=== PATIENT | male | born 1975 | race Caucasian/White ===

== ENCOUNTER 2020-07-18 10:05 | Inpatient (IN) ==
[2020-07-18] MEDS ORDERED: *HR* Heparin 5,000 UNIT/ML VIAL IVP ONE (10:29)
[2020-07-18] MEDS ORDERED: *HR* Heparin 5,000 UNIT/ML VIAL IVP PRN ×4 (10:29→17:34)
[2020-07-18] MEDS ORDERED: Heparin 25,000UNIT/250ML 1/2NS 25,000 UNIT/250 ML IV.SOLN IVC SCH ×2 (10:30→17:34)
[2020-07-18] MEDS ORDERED: Isovue-370 500 ML BOTTLE IVP ONE (10:35)
[2020-07-18 11:03] LABS: Basophils # 0.1 K/mcL (0.0-0.2); Basophils % 0.4 %; Eosinophils # 0.1 K/mcL (0.0-0.6); Eosinophils % 0.8 %; Hematocrit 47.6 % (37.5-50.1); INR 0.9; Immature Granulocytes % 0.4 % (0-4); Lymphocytes # 2.3 K/mcL (0.6-4.6); Lymphocytes % 18.9 %; Mean Corpuscular HGB Conc 33.6 g/dL (31.6-35.5); Mean Corpuscular Hemoglobin 30.4 pg (28.0-33.3); Mean Corpuscular Volume 90.3 fL (83.0-100.0); Mean Platelet Volume 11.1 fL (9.4-12.4); Monocytes # 0.8 K/mcL (0.0-1.3); Monocytes % 6.8 %; Neutrophils # 8.8 K/mcL (1.6-8.9); Platelet Count 226 K/mcL (140-400); Prothrombin Time 10.4 Seconds (9.4-12.1); Red Blood Count 5.27 M/mcL (4.19-5.50); Segmented Neutrophils % 72.7 %; White Blood Count 12.1 K/mcL (4.3-11.1)
[2020-07-18 11:06] LABS: Activated Partial Thrombo Time 25.6 Seconds (26.0-36.0); Heparin anti-factor XA UFH < 0.04 IU/mL (0.30-0.70)
[2020-07-18 11:17] LABS: BUN/Creatinine Ratio 17 (6-26); Blood Urea Nitrogen 15 mg/dL (6-20); Calcium 9.1 mg/dL (8.6-10.3); Carbon Dioxide 21 mEq/L (23-29); Chloride 112 mEq/L (98-107); Glucose 98 mg/dL (70-105); Osmolality,Calculated 289 (280-300); Potassium 4.3 mEq/L (3.5-5.1); Sodium 139 mEq/L (136-145); Troponin I < 0.03 ng/mL (< 0.04); eGFR For African Americans > 60 (> 60); eGFR For Non-African Americans > 60 (> 60)
[2020-07-18] MEDS ORDERED: Lidocaine 1% 20 ML MDV ONE (13:45)
[2020-07-18] MEDS ORDERED: Vancomycin 1,000 MG VIAL ONE (13:45)
[2020-07-18] MEDS ORDERED: Lidocaine 1% 0 ML ONE (13:45)
[2020-07-18] MEDS ORDERED: Heparin 1,000 UNITS/500 mL 500 ML ONE (13:45)
[2020-07-18 13:51] LABS: Adenovirus Not Detected (Not Detect); Coronavirus 229E Not Detected (Not Detect); Coronavirus HKU1 Not Detected (Not Detect); Coronavirus NL63 Not Detected (Not Detect); Coronavirus OC43 Not Detected (Not Detect)
[2020-07-18 13:52] LABS: Bordetella Pertussis Not Detected (Not Detect); Chlamydophila pneumoniae Not Detected (Not Detect); Human Metapneumovirus Not Detected (Not Detect); Human Rhinovirus/Enterovirus Not Detected (Not Detect); Influenza A Subtype 2009 H1 Not Detected (Not Detect); Influenza B Not Detected (Not Detect); Mycoplasma pneumoniae Not Detected (Not Detect); Parainfluenza Virus 1 Not Detected (Not Detect); Parainfluenza Virus 2 Not Detected (Not Detect); Parainfluenza Virus 3 Not Detected (Not Detect); Parainfluenza Virus 4 Not Detected (Not Detect); Respiratory Syncytial Virus Not Detected (Not Detect); SARS-CoV-2 Not Detected (Not Detect)
[2020-07-18] MEDS ORDERED: *HR* Succinylcholine 200 MG/10 ML VIAL IVP ONE (13:53)
[2020-07-18] MEDS ORDERED: Ondansetron 4 MG/2 ML VIAL ONE (13:53)
[2020-07-18] MEDS ORDERED: Lidocaine -MPF 2% 2 ML VIAL ONE (13:53)
[2020-07-18] MEDS ORDERED: Lidocaine HCL 4 ML Topical Solution (Laryng-O-Jet Kit Sterile Pak) TP ONE (13:53)
[2020-07-18] MEDS ORDERED: *HR* Rocuronium Bromide 50 MG/5 ML VIAL ONE ×2 (13:53→14:59)
[2020-07-18] MEDS ORDERED: *HR* FentaNYL (PF) 100 MCG/2 ML VIAL ONE (13:53)
[2020-07-18] MEDS ORDERED: Dexamethasone 4 MG/ML VIAL ONE (13:53)
[2020-07-18] MEDS ORDERED: *HR* Propofol 200 MG/20 ML VIAL IVP ONE (13:54)
[2020-07-18] MEDS ORDERED: *HR* Heparin 5,000 UNIT/ML VIAL ONE (14:07)
[2020-07-18] MEDS ORDERED: *HR* OxyCODONE Immed Rel 5 MG TABLET PO PRN ×3 (14:15→17:34)
[2020-07-18] MEDS ORDERED: Ondansetron 4 MG/2 ML VIAL IVP ONE (14:15)
[2020-07-18] MEDS ORDERED: *HR* HYDROmorphone PF 0.5 MG/0.5 ML SYRINGE IVP PRN (14:15)
[2020-07-18] MEDS ORDERED: *HR* HYDROMORPHONE 2 MG/ML VIAL ONE (15:02)
[2020-07-18] MEDS ORDERED: ceFAZolin 2,000 MG in Water for inj. (sterile) 20 ML IVP ONE (15:10)
[2020-07-18] MEDS ORDERED: *HR* Labetalol 20 MG/4 ML SYRINGE IVP ONE (16:33)
[2020-07-18] MEDS: *HR* Labetalol 20 MG/4 ML SYRINGE IVP PRN ×2 (16:36→16:48)
[2020-07-18] MEDS ORDERED: *HR* HYDROcodone/Acet 5/325 mg TABLET PO PRN ×2 (17:34)
[2020-07-18] MEDS ORDERED: Ondansetron 4 MG/2 ML VIAL IVP PRN (17:34)
[2020-07-18] MEDS ORDERED: Acetaminophen 325 MG TABLET PO PRN ×2 (17:34)
[2020-07-18] MEDS ORDERED: Perflutren Lipid Microsphere 1.3 ML in 0.9 % Sodium Chloride 8.7 ML IVP PRN (17:34)
[2020-07-18] MEDS ORDERED: Naloxone 0.4 MG/ML INJ IVP PRN (17:34)
[2020-07-18] MEDS ORDERED: 0.9 % Sodium Chloride 1,000 ML IVC SCH (17:34)
[2020-07-18] MEDS ORDERED: *HR* Labetalol 20 MG/4 ML SYRINGE IVP PRN (17:34)
[2020-07-18] MEDS ORDERED: *HR* Heparin 5,000 UNIT/ML VIAL SQ SCH ×2 (18:00)
[2020-07-18] MEDS: *HR* Metoprolol 5 MG/5 ML VIAL IVP SCH (18:07)
[2020-07-18] MEDS: CeFAZolin 2 GM/120 ML BAG IVPB SCH (21:45)
[2020-07-19] MEDS: *HR* Metoprolol 5 MG/5 ML VIAL IVP SCH ×4 (00:23→14:42)
[2020-07-19 01:38] LABS: Basophils % 0.1 %; Hematocrit 43.4 % (37.5-50.1); Hemoglobin 14.6 g/dL (12.9-16.9); Immature Granulocytes % 0.4 % (0-4); Lymphocytes # 1.1 K/mcL (0.6-4.6); Mean Corpuscular HGB Conc 33.6 g/dL (31.6-35.5); Mean Corpuscular Hemoglobin 30.4 pg (28.0-33.3); Mean Corpuscular Volume 90.2 fL (83.0-100.0); Mean Platelet Volume 11.6 fL (9.4-12.4); Monocytes # 0.8 K/mcL (0.0-1.3); Neutrophils # 13.8 K/mcL (1.6-8.9); Platelet Count 211 K/mcL (140-400); Red Blood Count 4.81 M/mcL (4.19-5.50); Segmented Neutrophils % 87.5 %; White Blood Count 15.8 K/mcL (4.3-11.1)
[2020-07-19 01:56] LABS: BUN/Creatinine Ratio 16 (6-26); Blood Urea Nitrogen 13 mg/dL (6-20); Calcium 8.6 mg/dL (8.6-10.3); Carbon Dioxide 21 mEq/L (23-29); Chloride 110 mEq/L (98-107); Glucose 141 mg/dL (70-105); Osmolality,Calculated 284 (280-300); Potassium 4.3 mEq/L (3.5-5.1); Sodium 136 mEq/L (136-145); eGFR For African Americans > 60 (> 60); eGFR For Non-African Americans > 60 (> 60)
[2020-07-19] MEDS: CeFAZolin 2 GM/120 ML BAG IVPB SCH (06:11)
[2020-07-19] MEDS ORDERED: Aspirin Enteric Coated 81 MG Tablet PO SCH (09:00)
[2020-07-19 12:10] VITALS: BP 180/93
== END 2020-07-19 15:13 | disposition home or self-care (01) | DRG 252 ==
LOC: EMEROOARM 10:05 → 2NNU 10:05
PROVIDERS: ADMIT Surgery; ATTEND Surgery

== ENCOUNTER 2020-07-20 00:25 | Inpatient (IN) ==
[2020-07-20] MEDS ORDERED: *HR* FentaNYL (PF) 100 MCG/2 ML VIAL IVP ONE (00:32)
[2020-07-20] MEDS ORDERED: Isovue-370 500 ML BOTTLE IVP ONE ×2 (00:33→11:43)
[2020-07-20 01:38] LABS: Basophils # 0.1 K/mcL (0.0-0.2); Basophils % 0.4 %; Eosinophils # 0.1 K/mcL (0.0-0.6); Eosinophils % 0.4 %; Hematocrit 44.4 % (37.5-50.1); Hemoglobin 14.5 g/dL (12.9-16.9); Immature Granulocytes % 0.4 % (0-4); Lymphocytes # 3.3 K/mcL (0.6-4.6); Lymphocytes % 23.4 %; Mean Corpuscular HGB Conc 32.7 g/dL (31.6-35.5); Mean Corpuscular Volume 91.9 fL (83.0-100.0); Mean Platelet Volume 11.5 fL (9.4-12.4); Monocytes # 1.1 K/mcL (0.0-1.3); Monocytes % 7.4 %; Neutrophils # 9.6 K/mcL (1.6-8.9); Platelet Count 207 K/mcL (140-400); Red Blood Count 4.83 M/mcL (4.19-5.50); Red Cell Distribution Width 13.1 % (11.5-14.5); White Blood Count 14.2 K/mcL (4.3-11.1)
[2020-07-20] MEDS ORDERED: *HR* Heparin 5,000 UNIT/ML VIAL IVP PRN ×4 (01:40→06:29)
[2020-07-20] MEDS ORDERED: *HR* Heparin 5,000 UNIT/ML VIAL IVP ONE (01:40)
[2020-07-20] MEDS ORDERED: Morphine Sulfate 2 MG/ML SYRINGE IVP STA (01:43)
[2020-07-20] MEDS ORDERED: Heparin 25,000UNIT/250ML 1/2NS 25,000 UNIT/250 ML IV.SOLN IVC SCH ×2 (01:45→06:29)
[2020-07-20 01:48] LABS: BUN/Creatinine Ratio 24 (6-26); Blood Urea Nitrogen 20 mg/dL (6-20); Calcium 8.5 mg/dL (8.6-10.3); Carbon Dioxide 22 mEq/L (23-29); Chloride 111 mEq/L (98-107); Glucose 137 mg/dL (70-105); INR 0.9; Osmolality,Calculated 299 (280-300); Potassium 3.7 mEq/L (3.5-5.1); Prothrombin Time 10.2 Seconds (9.4-12.1); Sodium 142 mEq/L (136-145); eGFR For African Americans > 60 (> 60); eGFR For Non-African Americans > 60 (> 60)
[2020-07-20 01:51] LABS: Activated Partial Thrombo Time 24.5 Seconds (26.0-36.0)
[2020-07-20 02:10] LABS: Hemoglobin 14.5 g/dL (12.9-16.9); Mean Corpuscular Hemoglobin 30.3 pg (28.0-33.3); Mean Corpuscular Volume 91.9 fL (83.0-100.0); Mean Platelet Volume 11.1 fL (9.4-12.4); Platelet Count 188 K/mcL (140-400); Red Blood Count 4.79 M/mcL (4.19-5.50); White Blood Count 14.7 K/mcL (4.3-11.1)
[2020-07-20 02:21] LABS: Heparin anti-factor XA UFH < 0.04 IU/mL (0.30-0.70); INR 0.9; Prothrombin Time 10.3 Seconds (9.4-12.1)
[2020-07-20] MEDS ORDERED: 0.9 % Sodium Chloride 1,000 ML ONE (02:48)
[2020-07-20] MEDS ORDERED: Lidocaine -MPF 2% 2 ML VIAL ONE (03:13)
[2020-07-20] MEDS ORDERED: Dexamethasone 4 MG/ML VIAL ONE (03:13)
[2020-07-20] MEDS ORDERED: *HR* Rocuronium Bromide 50 MG/5 ML VIAL ONE (03:13)
[2020-07-20] MEDS ORDERED: Ondansetron 4 MG/2 ML VIAL ONE (03:13)
[2020-07-20] MEDS ORDERED: *HR* Propofol 200 MG/20 ML VIAL IVP ONE (03:14)
[2020-07-20] MEDS ORDERED: *HR* FentaNYL (PF) 100 MCG/2 ML VIAL ONE (03:14)
[2020-07-20] MEDS ORDERED: ceFAZolin 2,000 MG in Water for inj. (sterile) 20 ML IVP ONE (03:26)
[2020-07-20] MEDS ORDERED: Heparin 1,000 UNITS/500 mL 500 ML ONE (03:31)
[2020-07-20] MEDS ORDERED: Vancomycin 1,000 MG VIAL ONE (03:31)
[2020-07-20] MEDS ORDERED: Acetaminophen IV 1,000 MG/100 ML INFUS..BTL ONE (03:34)
[2020-07-20] MEDS ORDERED: *HR* HYDROMORPHONE 2 MG/ML VIAL ONE (04:27)
[2020-07-20] MEDS ORDERED: *HR* Heparin 5,000 UNIT/ML VIAL ONE ×2 (04:43→04:44)
[2020-07-20] MEDS ORDERED: Ringers Solution, Lactated 1,000 ML ONE (05:50)
[2020-07-20] MEDS ORDERED: *HR* Labetalol 20 MG/4 ML SYRINGE IVP PRN ×2 (05:54→06:29)
[2020-07-20] MEDS ORDERED: *HR* HYDROmorphone (PF) 1 MG/ML SYRINGE IVP PRN (05:54)
[2020-07-20] MEDS ORDERED: Ondansetron 4 MG/2 ML VIAL IVP PRN ×2 (05:54→06:29)
[2020-07-20] MEDS ORDERED: *HR* OxyCODONE Immed Rel 5 MG TABLET PO PRN (06:29)
[2020-07-20] MEDS ORDERED: Acetaminophen 325 MG TABLET PO PRN (06:29)
[2020-07-20] MEDS ORDERED: 0.9 % Sodium Chloride 1,000 ML IVC SCH (06:29)
[2020-07-20] MEDS ORDERED: Naloxone 0.4 MG/ML INJ IVP PRN (06:29)
[2020-07-20] MEDS ORDERED: *HR* HYDROcodone/Acet 5/325 mg TABLET PO PRN (06:29)
[2020-07-20] MEDS: *HR* Metoprolol 5 MG/5 ML VIAL IVP SCH ×3 (08:16→21:08)
[2020-07-20] MEDS ORDERED: Aspirin Enteric Coated 81 MG Tablet PO SCH (09:00)
[2020-07-20] MEDS: CeFAZolin 2 GM/120 ML BAG IVPB SCH ×2 (11:21→18:29)
[2020-07-20] MEDS ORDERED: Nicotine 21 MG PATCH.TD24 TD SCH (12:15)
[2020-07-20 20:49] VITALS: BP 155/102
== END 2020-07-20 21:10 | disposition short-term general hospital (02) | DRG 252 ==
LOC: EMEROOARM 00:25 → ICNU 00:25
PROVIDERS: ADMIT Surgery; ATTEND Surgery